=== PATIENT | female | born 1985 | race Native Hawaiian/Other Pacific Islander ===

== ENCOUNTER 2016-12-10 17:18 | Emergency (ER) | payer OTHER ==
[~2016-12-10] VITALS: Ht 154.9 cm; Wt 88.5 kg
== END 2016-12-10 19:51 | disposition home or self-care (01) ==
LOC: ED 17:18
DX: M54.31 Sciatica, right side (principal)
CPT/HCPCS: 36415; 81025; 99283

== ENCOUNTER 2017-08-01 10:07 | Emergency (ER) | payer OTHER ==
[~2017-08-01] VITALS: Ht 154.9 cm; Wt 89.8 kg
== END 2017-08-01 11:10 | disposition home or self-care (01) ==
LOC: ED 10:07
DX: I10 Essential (primary) hypertension (principal)
CPT/HCPCS: 96372; 99283; J0696